=== PATIENT | male | born 1960 | race Caucasian/White ===

== ENCOUNTER → 2016-05-16 | Outpatient (CLI) | payer BC | END | disposition home or self-care (01) | LOC: PCVCIMAG 13:59 | PROVIDERS: ATTEND Internal Medicine | DX: I25.10 Atherosclerotic heart disease of native coronary artery without angina pectoris (principal); I10 Essential (primary) hypertension | CPT/HCPCS: 93306 ==

== ENCOUNTER → 2016-11-30 | Outpatient (CLI) | payer BC ==
--- NOTE | 2016-11-30 12:59 | PCVCIMAG ---
EXAM: BILATERAL RENAL ULTRASOUND AND BILATERAL RENAL DUPLEX INDICATION: Hypertension FINDINGS: Right kidney: Length measures 11.4 cm. No hydronephrosis or extensive renal scarring. 0.7 mm probable calculus mid pole. Right renal duplex: Adequate technical quality. No sonographic evidence of renal artery stenosis. The aortic to renal artery ratio is 2.3. The renal vein is patent. Left kidney: Length measures 14.3 cm. No hydronephrosis or extensive renal scarring. Left renal duplex: Adequate technical quality. No sonographic evidence of renal artery stenosis. The aortic to renal artery ratio is 1.3. The renal vein is patent. Bladder: No obvious abnormalities. IMPRESSION: No significant renal artery stenosis. No hydronephrosis bilaterally. LOC:[id number]
== END | disposition home or self-care (01) ==
LOC: PCVCIMAG 08:27
PROVIDERS: ATTEND Internal Medicine
DX: I10 Essential (primary) hypertension (principal)
CPT/HCPCS: 76770; 93975

== ENCOUNTER → 2018-11-22 | Outpatient (CLI) | payer BC ==
--- NOTE | 2018-11-22 13:49 | PCVCIMAG ---
APPROVED REPORT Imaging Protocol: Rest Tc-99m/Stress Tc-99m 1 day Study performed: 11/22/2018 09:35:55 Indication: CAD, High Ca Score Patient Location: Out-Patient Stress Nurse: Genesis Keating RN, Kira Osman RN [place] Tech:Sadie Flores [facility] Ht: 6 ft 4 in Wt: 234 lbs BSA: 2.37 m2 HR: 71 bpm BP: 178/98 mmHg BMI: 28.4 Rhythm: Normal Sinus Rhythm Medical History Medical History: Hyperlipidemia, HTN Medications: Bumex, Avapro, Bystolic, Crestor, ASA Allergies: No known drug allergies Cardiac Risk Factors: Age Pretest Chest Pain Characteristics: No chest pain Exercise History: Physically active Meds Held (24 hrs): Bystolic Resting Data Rest SPECT myocardial perfusion imaging was performed in supine position 45 minutes following the intravenous injection of 10.8 mCi of Tc-99m Sestamibi. Time of rest injection: 0845 Date: 11/22/2018 Administration Route: IV Administration Site: Right Hand Exercise Stress At peak stress, the patient was injected intravenously with 35.2mCi of Tc-99m Sestamibi. Time of stress injection: 1015 Date: 11/22/2018 Administration Route: IV Administration Site: Right Hand Patient continued to exercise for 1 minute(s). Gated Stress SPECT was performed 30 minutes after stress injection. The images were gated to evaluate regional wall motion and calculate left ventricular ejection fraction. Stress Test Details Stress Test: Exercise stress testing was performed using a Jeffrey protocol. HRMax Heart Rate (APMHR): 164 bpm Resting HR: 71 bpmTarget HR (85% APMHR): 139 bpm Max HR Achieved: 150 bpm % of APMHR: 91 Recovery HR: 93 bpm HR response to stress: Normal HR response to stress BP Resting BP: 178/98 mmHg Max BP: 188/80 mmHg Recovery BP: 164/70 mmHg BP response to stress: Normal blood pressure response to stress. ECG Resting ECG: Sinus Rhythm Stress ECG: Sinus Tachycardia ST Change: Horizontal ST depression Maximum ST Deviation: 0.5 mm Arrhythmia: None Recovery ECG: Sinus Rhythm Recovery ST Change: None Recovery Arrhythmia: None Clinical Reason for Termination: Maximal effort Stress Symptoms: Dyspnea, Leg Fatigue Exercise duration: 10 min 31 sec Exercise capacity: 13.4 METs Overall Exercise Capacity for Age: Good Scale: Active Angina Score: None Symptoms resolved during recovery. Stress ECG Conclusion 1. Subjectively negative for ischemia 2. Active cartographic a negative for ischemia 3. Satisfactory functional capacity Escamilla Treadmill Score is 7.5 which is Low risk. Study Data Post stress, the left ventricular ejection was 72%.. SSS: 0 SRS: 0 SDS: 0 TID = 0.66. Perfusion Normal perfusion on both the stress and rest images. Nuclear Conclusion ECG Findings: non-ischemic Clinical Findings: negative for ischemia Nuclear Findings: negative for ischemia Exercise Capacity: normal Left Ventricular Function: normal 1. Low risk study 2. Post exercise left ventricular ejection fraction 72% with normal contractility Interpreted by: Nisa Brasher MD Electronically Approved: 11/22/2018 13:49:27 <Conclusion> 1. Subjectively negative for ischemia 2. Active cartographic a negative for ischemia 3. Satisfactory functional capacity
--- NOTE | 2018-11-23 10:37 | PCVCIMAG ---
APPROVED REPORT Study performed: 11/22/2018 07:59:12 EXAM: Comprehensive 2D, Doppler, and color-flow Echocardiogram Patient Location: Echo lab Status: routine BSA: 2.34 HR: 59 bpmBP: 144/90 mmHg Rhythm: NSR Other Information Study Quality: Good Risk Factors: Cardiac Risk Factors: HTN, Hyperlipidemia Indications Elevated calcium score 2D Dimensions IVSd: 12.97 (7-11mm)LVOT Diam: 24.19 (18-24mm) LVDd: 43.99 mm PWd: 10.88 (7-11mm)Ascending Ao: 43.13 (22-36mm) LVDs: 32.84 (25-40mm) Left Atrium: 39.86 (27-40mm) Aortic Root: 38.30 mm LV Single Plane 4CH: 54.14 % LV Single Plane 2CH: 55.46 % Biplane EF: 55.2 % Volumes Left Atrial Volume (Systole) Single Plane 4CH: 81.78 mLSingle Plane 2CH: 96.98 mL LA ESV Index: 33.00 mL/m2 Aortic Valve AoV Peak Lebron.: 1.03 m/s AO Peak Gr.: 4.27 mmHgLVOT Max P.72 mmHg LVOT Max V: 0.96 m/s JUAN Vmax: 4.29 cm2 Mitral Valve E/A Ratio: 1.3 MV Decel. Time: 202.66 ms MV E Max Lebron.: 0.66 m/s MV A Lebron.: 0.51 m/s IVRT: 86.51 ms TDI E/Lateral E': 6.60E/Medial E': 6.60 Medial E' Lebron.: 0.10 m/s Lateral E' Lebron.: 0.10 m/s Pulmonary Vein P Vein S: 0.57 m/sP Vein A: 0.46 m/s P Vein D: 0.45 m/sP Vein A Dur.: 96.9 msec P Vein S/D Ratio: 1.27 Tricuspid Valve TR Peak Lebron.: 2.28 m/s TR Peak Gr.: 20.82 mmHg Left Ventricle The left ventricle is normal size. There is normal LV segmental wall motion. There is normal left ventricular wall thickness. Left ventricular systolic function is normal. The left ventricular ejection fraction is within the normal range. LVEF is 60%. Right Ventricle The right ventricle is normal size. The right ventricular systolic function is normal. Atria The left atrium size is normal. The right atrium size is normal. Aortic Valve The aortic valve is normal in structure. No aortic regurgitation is present. There is no aortic valvular stenosis. Mitral Valve The mitral valve is normal in structure. Trace mitral regurgitation. No evidence of mitral valve stenosis. Tricuspid Valve The tricuspid valve is normal in structure. Trace tricuspid regurgitation. Pulmonary artery pressure is 28mmHg. Pulmonic Valve The pulmonary valve is normal in structure. There is no pulmonic valvular regurgitation. Great Vessels The aortic root is normal in size. The ascending aorta is dilated measuring 4.5cm. IVC is normal in size and collapses >50% with inspiration. Pericardium There is no pericardial effusion. <Conclusion> The left ventricle is normal size. LVEF is 60%. The aortic valve is normal in structure. The mitral valve is normal in structure. Trace mitral regurgitation. The tricuspid valve is normal in structure. Trace tricuspid regurgitation. Pulmonary artery pressure is 28mmHg. The pulmonary valve is normal in structure. The ascending aorta is dilated measuring 4.5cm. There is no pericardial effusion.
== END | disposition home or self-care (01) ==
LOC: PCVCIMAG 07:47
PROVIDERS: ATTEND Internal Medicine
DX: I25.10 Atherosclerotic heart disease of native coronary artery without angina pectoris (principal); E78.5 Hyperlipidemia, unspecified; I10 Essential (primary) hypertension; R93.1 Abnormal findings on diagnostic imaging of heart and coronary circulation; Z72.89 Other problems related to lifestyle; Z82.49 Family history of ischemic heart disease and other diseases of the circulatory system
CPT/HCPCS: 78452; 93017; 93306; A9500